=== PATIENT | male | born 1975 | race African-American/Black ===

== ENCOUNTER 2017-02-10 10:44 | Emergency (ER) | payer OTHER ==
[2017-02-10 10:51] VITALS: BP 151/84; PULSE 91; TEMP 37; O2SAT 97
--- NOTE | 2017-02-10 12:02 | EMERGENCY ROOM VISIT NOTE ---
History Report prepared by Jerrod: Iona Pacheco Under the Supervision of: Dr. Robert Rueda M.D. First contact with patient: 11:40 Chief Complaint: OTHER COMPLAINT Stated Complaint: OVERDOSE History of Present Illness The patient is a 41 year old male who presents to the Emergency Room with complaints of a sudden episode of unresponsiveness that occurred just prior to arrival. Per nursing staff, the patient was found face down in the yard at the [facility], vomiting, and unresponsive. Nursing staff states that there is concern that the patient took K2 today. The patient states that he takes [place] and Remeron daily. He states that he was smoking a cigarette and drinking coffee and became nauseated today. The patient states that he had difficulty breathing and then began vomiting. He denies taking any drugs or medication un- prescribed to him. The patient denies getting into any fight or any injury. He denies any abdominal pain. Associated Symptoms: + nausea, + vomiting, No abdominal pain Note: Associated Symptoms: difficulty breathing, unresponsive. Review of Systems See HPI for pertinent positives & negatives. A total of 10 systems reviewed and were otherwise negative. Past Medical & Surgical Medical Problems: (1) No active medical problems Family History No pertinent family history stated. Social History Smoking Status: Current Every Day Smoker Marital Status: single Housing Status: other ([facility]) Current/Historical Medications Unable to Obtain Active Prescriptions or Reported Meds Physical Exam Vital Signs Date Time Temp Pulse Resp B/P (MAP) Pulse Ox O2 Delivery O2 Flow Rate FiO2 02/10/17 10:51 37.0 91 18 151/84 97 Room Air Physical Exam GENERAL: Patient is in no acute distress. HEENT: No acute trauma, normocephalic atraumatic, mucous membranes moist, no nasal congestion, no scleral icterus. NECK: No stridor, no adenopathy, no meningismus, trachea is midline. LUNGS: Clear to auscultation bilaterally, no wheeze, no rhonchi, breath sounds equal. HEART: Without murmurs gallops or rubs, regular rate and rhythm. ABDOMEN: Soft, nontender, bowel sounds positive, no hernias, no peritonitis. EXTREMITIES: No cyanosis or edema, full range of motion of all the joints without pain or difficulty, no signs for acute trauma. NEUROLOGIC: Oriented x 3, no acute motor or sensory deficits, no focal weakness. SKIN: No rash, no jaundice, no diaphoresis. Medical Decision & Procedures ED Course 1141: The patient was evaluated in room B8. A complete history and physical exam was performed. 1154: I discussed the patients case with Bobbi Drake. He feels comfortable taking the patient back to their facility for further evaluation and treatment. 1157: I reevaluated the patient and he is doing well. I discussed the exam findings with him and I discussed the treatment plan. He verbalized complete understanding and agreement. The patient will be discharged back to the [facility]. Medical Decision The patient is a 41 year old male who presents to the ED with complaints of an episode of unresponsiveness. Differential diagnoses considered include Overdose , viral illness, trauma, medication reaction, dehydration, infection. The patient presents with an episode of confusion and vomiting. He is now completely back to baseline, he has no complaints. There has been no trauma, he has no abdominal pain. He is not short of breath. He denies taking anything in overdose. He wants to be discharged back to the [facility]. On exam, I could find no abnormalities. His vital signs were stable. I did discuss the case with the medical team at the [facility]. As the patient is doing well and wants no care, he is being discharged back to their facility. The cause for this presentation is unclear. He can return if worsening. Medication Reconcilliation Current Medication List: was personally reviewed by me Consults Time Called: 1150 Consulting Physician: Bobbi Drake Returned Call: 1154 I discussed the patients case with Bobbi Drake. He feels comfortable taking the patient back to their facility for further evaluation and treatment. Impression Primary Impression: Vomiting Scribe Attestation The scribe's documentation has been prepared under my direction and personally reviewed by me in its entirety. I confirm that the note above accurately reflects all work, treatment, procedures, and medical decision making performed by me. Departure Information Dispostion Home / Self-Care Prescriptions Unable to Obtain Active Prescriptions or Reported Meds Referrals No Doctor, Assigned (PCP) Forms HOME CARE DOCUMENTATION FORM, IMPORTANT VISIT INFORMATION Patient Instructions My [facility] Additional Instructions return with any concerns or worsening symptoms your exam today was normal
== END 2017-02-10 12:11 | disposition home or self-care (01) ==
LOC: C.EDB 10:47
DX: R11.10 Vomiting, unspecified (principal); F17.200 Nicotine dependence, unspecified, uncomplicated